=== PATIENT | male | born 1985 | race Caucasian/White ===

== ENCOUNTER 2022-05-27 16:06 | Emergency (ER) | payer MEDICAID, SELFPAY ==
--- NOTE | ~2022-05-27 | XR_ITS ---
EXAMINATION: XR chest 2V DATE: 05/27/2022 16:45 INDICATION: Weakness. Dizziness. TECHNIQUE: Frontal and lateral views of the chest were obtained. COMPARISON: Chest 2 views 12/20/2015 FINDINGS: The chest demonstrates clear lungs without pneumonia, pleural effusion, or pneumothorax. Th e heart size is normal. IMPRESSION: 1. No acute cardiopulmonary disease. Reviewed, dictated and finalized at location A.
--- NOTE | 2022-05-27 16:09 | ECG_ITS ---
Measurements Intervals [place] Rate: 78 P: 28 [place]: 180 QRS: 32 QRSD: 94 T: 18 QT: 341 QTc: 389 Interpretive Statements SINUS RHYTHM BASELINE ARTIFACT- I, II, III, AVR, AVL, AVF, V1-V2 NORMAL ECG Electronically Signed On 05-27-2022 18:52:49 CDT by Villa Burch D.O.
[2022-05-27 16:10] VITALS: BP 152/92; PULSE 99; RESP 17; TEMP 37.1; O2SAT 100
[2022-05-27 16:29] LABS: Basophils Percent Auto 0.4 % (0.2-1.2); Eosinophils Absolute Auto 0.2 K/mm3 (0-0.3); Eosinophils Percent Auto 2.6 % (0-4.4); Hematocrit 37.7 % (42.0-52.0); Hemoglobin 12.3 g/dL (14.0-18.0); Immature Granulocyte Absolute 0.02 K/mm3 (0.00-0.031); Immature Granulocyte Percent A 0.3 % (0-0.5); Lymphocytes Absolute Auto 3.55 K/mm3 (0.9-3.2); Lymphocytes Percent Auto 50.5 % (18.3-44.2); Mean Corpuscular HGB Conc 32.6 g/dl (32-36); Mean Corpuscular Hemoglobin 29.4 pg (26-34); Mean Corpuscular Volume 90.2 fl (80-100); Mean Platelet Volume 8.3 fl (7.4-10.4); Monocytes Absolute Auto 0.5 K/mm3 (0.1-0.6); Monocytes Percent Auto 6.4 % (2.6-8.5); Neutrophils Absolute Auto 2.8 K/mm3 (1.3-6.7); Neutrophils Percent Auto 39.8 % (45.5-73.1); Platelet Count Result 359 k/mm3 (150-375); Red Blood Count 4.18 M/mm3 (4.6-6.20); Red Cell Distribution Width 13.2 % (11.5-14.5)
[2022-05-27 16:38] LABS: Alanine Aminotransferase 23 U/L (6-50); Albumin Level 4.9 g/dL (3.5-5.1); Alkaline Phosphatase 60 U/L (38-126); Anion Gap 9 mmol/L (8-16); Aspartate Amino Transferase 34 U/L (17-59); Bilirubin,Total 0.5 mg/dL (0.2-1.3); Blood Urea Nitrogen 16 mg/dL (9-20); Carbon Dioxide 24 mmol/L (22-30); Chloride 102 mmol/L (98-107); Estimated CRCL calculation 150 ml/min; Estimated Glomerular Filt Rate > 60; Glucose 130 mg/dL (65-110); Potassium 3.7 mmol/L (3.4-5.0); Sodium 135 mmol/L (137-145)
[2022-05-27 16:38] LABS: Appearance Urine Clear (Clear); Bilirubin Urine Negative (Negative); Blood Urine Negative (Negative); Color Urine Yellow (Yellow); Glucose Urine UA Negative (Negative); Ketones Urine Negative (Negative); Leukocyte Esterase Ur Negative LEU/UL (Negative); Nitrate Urine Negative (Negative); Protein Urine Negative (Negative); Specific Grav Ur >= 1.030 (1.001-1.035); Urobilinogen Urine 0.2 mg/dL (<2.0); pH Urine 5.5 (5.0-9.0)
[2022-05-27 16:42] LABS: Add Urine Microscopic? NO
--- NOTE | 2022-05-27 17:44 | PC.NURSE ---
Pt called to be roomed. Pt not present in waiting room at this time.
--- NOTE | 2022-05-27 17:50 | PC.NURSE ---
Pt called again to be taken to room. Pt still not present in waiting room or outside of ED doors. Pt left without being seen.
== END 2022-05-27 17:50 | disposition left against medical advice (07) ==
LOC: ANHED 17:58
PROVIDERS: Emergency Provider Emergency Medicine
DX: R53.1 Weakness (principal)
CPT/HCPCS: 36415; 71046; 80053; 81003; 85025; 93005; 99199

== ENCOUNTER 2022-06-18 12:40 | Emergency (ER) | payer MEDICAID, SELFPAY ==
--- NOTE | ~2022-06-18 | XR_ITS ---
EXAMINATION: XR chest 2V DATE: 06/18/2022 13:04 INDICATION: Chest pressure. TECHNIQUE: Frontal and lateral views of the chest were obtained. COMPARISON: Chest 2 views 05/27/2022 FINDINGS: The chest demonstrates clear lungs without pneumonia, pleural effusion, or pneumothorax. Th e heart size is normal. IMPRESSION: 1. No acute cardiopulmonary disease. Reviewed, dictated and finalized at location A.
--- NOTE | 2022-06-18 12:43 | ECG_ITS ---
Measurements Intervals [place] Rate: 78 P: 18 DC: 176 QRS: 38 QRSD: 91 T: 29 QT: 341 QTc: 389 Interpretive Statements SINUS RHYTHM NORMAL EKG COMPARED TO ECG 05/27/2022 16:18:19 NO SIGNIFICANT CHANGES Electronically Signed On 06-18-2022 16:40:39 CDT by Emily Mclain M.D.
[2022-06-18 12:50] VITALS: BP 146/97; PULSE 103; RESP 18; TEMP 36.8; O2SAT 97
[2022-06-18 12:53] VITALS: PULSE 97
--- NOTE | 2022-06-18 12:53 | ED.CHESTPAIN ---
HPI - Chest Pain General Chief Complaint: Chest Pain Stated Complaint: chest pressure x 3 days Time Seen by Provider: 06/18/22 12:42 History of Present Illness HPI narrative: 36-year-old male with a history of polysubstance abuse and hypertension presents the emergency room for evaluation of chest pain for 3 days. Patient describes the pain as pressure sensation has been constant since onset. States the pain is worse with exertion. At times he has become diaphoretic. Denies any shortness of breath difficulty breathing near syncopal episodes. Patient admits to frequent fentanyl use, last use was this morning. Related Data Allergies Allergy/AdvReac Type Severity Reaction Status Date / Time adhesive tape Allergy Mild MEDICAL Verified 06/18/22 12:54 TAPE= HIVES AT THE SITE haloperidol Allergy Unknown HANDS CURL Verified 06/18/22 12:54 Review of Systems Review of Systems: CONSTITUTIONAL: Denies fever, chills, or sweats. EYES: Denies visual changes, redness, or discharge. ENT: Denies rhinorrhea, congestion, sore throat, or otalgia. CARDIOVASCULAR: Reports chest pain, denies palpitations or edema RESPIRATORY: Denies cough or dyspnea. GASTROINTESTINAL: Denies abdominal pain, nausea, vomiting, or diarrhea. GENITOURINARY: Denies dysuria or hematuria. SKIN: Denies rash or itching. MUSCULOSKELETAL: Denies back pain, joint pain, or myalgia. NEUROLOGIC: Denies headache, numbness, dizziness, or weakness. PSYCHIATRIC: Denies anxiety or depression. Exam Narrative: GENERAL: Well-appearing, well-nourished, no physical limitations, and in no acute distress. HEAD: Normocephalic, atraumatic. EYES: Conjunctivae normal, PERRLA and EOMI. CHEST: Clear to auscultation. No respiratory distress. No wheezes rales or rhonchi. No tenderness. HEART: Regular rate and rhythm. No murmur heard. Normal peripheral pulses. ABDOMEN: Soft, nontender, nondistended, normal active bowel sounds. EXTREMITIES: Normal range of motion. No edema. No clubbing or cyanosis SKIN: Warm, dry, no rash. No noted wounds NEURO: No focal deficits. Alert and oriented x3. MAEW. CN's II-XI intact bilaterally, normal gait PSYCH: Cooperative. Normal mood and affect. Anxious Course Vital Signs Vital signs: Vital Signs Temperature 36.8 C 06/18/22 12:50 Pulse Rate 103 H 06/18/22 12:50 Respiratory Rate 18 06/18/22 12:50 Blood Pressure 146/97 H 06/18/22 12:50 Pulse Oximetry 97 06/18/22 12:50 Oxygen Delivery Room Air 06/18/22 12:50 Temperature 36.8 C 06/18/22 12:50 Pulse Rate 68 06/18/22 13:41 Respiratory Rate 16 06/18/22 13:41 Blood Pressure 123/72 06/18/22 13:41 Pulse Oximetry 98 06/18/22 13:41 Oxygen Delivery Room Air 06/18/22 12:50 MDM - Chest Pain MDM Narrative Medical decision making narrative: 36-year-old history of polysubstance abuse presented with complaints of constant chest pain for the last 3 days. Exam showed no evidence of volume overload. EKG showed no signs of active ischemia. Initial troponin was negative. Chest x-ray shows no evidence of acute cardiopulmonary disease. Heart score was 0, so the plan is for the patient to follow-up with primary care physician. Strongly encourage patient to discontinue abuse of fentanyl. Lab Data Result diagrams: 06/18/22 13:28 06/18/22 13:28 Labs: Lab Results 06/18/22 06/18/22 06/18/22 Range/Units 13:28 13:28 13:28 WBC 6.3 (4.5-10.0) K/mm3 RBC 4.68 (4.6-6.20) M/mm3 Hgb 13.7 L (14.0-18.0) g/dL Hct 40.9 L (42.0-52.0) % MCV 87.4 (80-100) fl MCH 29.3 (26-34) pg MCHC 33.5 (32-36) g/dl RDW 12.7 (11.5-14.5) % Plt Count 345 (150-375) k/mm3 MPV 8.6 (7.4-10.4) fl Immature Gran % (Auto) 0.5 (0-0.5) % Neut % (Auto) 59.7 (45.5-73.1) % Lymph % (Auto) 31.8 (18.3-44.2) % [place] % (Auto) 5.1 (2.6-8.5) % Eos % (Auto) 2.4 (0-4.4) % Baso % (Auto) 0.5 (0.2-1.2) % Lymph #
[2022-06-18 13:38] LABS: Basophils Percent Auto 0.5 % (0.2-1.2); Eosinophils Absolute Auto 0.2 K/mm3 (0-0.3); Eosinophils Percent Auto 2.4 % (0-4.4); Hematocrit 40.9 % (42.0-52.0); Hemoglobin 13.7 g/dL (14.0-18.0); Immature Granulocyte Absolute 0.03 K/mm3 (0.00-0.031); Immature Granulocyte Percent A 0.5 % (0-0.5); Lymphocytes Absolute Auto 1.99 K/mm3 (0.9-3.2); Lymphocytes Percent Auto 31.8 % (18.3-44.2); Mean Corpuscular HGB Conc 33.5 g/dl (32-36); Mean Corpuscular Hemoglobin 29.3 pg (26-34); Mean Corpuscular Volume 87.4 fl (80-100); Mean Platelet Volume 8.6 fl (7.4-10.4); Monocytes Absolute Auto 0.3 K/mm3 (0.1-0.6); Monocytes Percent Auto 5.1 % (2.6-8.5); Neutrophils Absolute Auto 3.7 K/mm3 (1.3-6.7); Neutrophils Percent Auto 59.7 % (45.5-73.1); Platelet Count Result 345 k/mm3 (150-375); Red Blood Count 4.68 M/mm3 (4.6-6.20); Red Cell Distribution Width 12.7 % (11.5-14.5); White Blood Count 6.3 K/mm3 (4.5-10.0)
[2022-06-18 13:41] VITALS: BP 123/72; PULSE 68; RESP 16; O2SAT 98
[2022-06-18 13:47] LABS: Alanine Aminotransferase 32 U/L (6-50); Albumin Level 4.6 g/dL (3.5-5.1); Alkaline Phosphatase 63 U/L (38-126); Anion Gap 11 mmol/L (8-16); Appearance Urine Clear (Clear); Aspartate Amino Transferase 34 U/L (17-59); Bilirubin Urine Negative (Negative); Bilirubin,Total 0.3 mg/dL (0.2-1.3); Blood Urea Nitrogen 14 mg/dL (9-20); Blood Urine Negative (Negative); Calcium 9.7 mg/dL (8.4-10.2); Carbon Dioxide 26 mmol/L (22-30); Chloride 98 mmol/L (98-107); Color Urine Yellow (Yellow); Estimated CRCL calculation 133 ml/min; Estimated Glomerular Filt Rate > 60; Glucose 109 mg/dL (65-110); Glucose Urine UA Negative (Negative); Ketones Urine Negative (Negative); Leukocyte Esterase Ur Negative LEU/UL (Negative); Lipase 24 U/L (23-300); Nitrate Urine Negative (Negative); Protein Urine Negative (Negative); Sodium 135 mmol/L (137-145); Specific Grav Ur 1.015 (1.001-1.035); Urobilinogen Urine 0.2 mg/dL (<2.0)
[2022-06-18 13:52] LABS: D Dimer 0.35 ug/mL (<0.48)
[2022-06-18 13:54] LABS: Amphetamine Screen Urine Negative (Negative); Barbiturate Screen Urine Negative (Negative); Benzodiazepines Screen Urine Negative (Negative); Cannabinoid Screen Urine Negative (Negative); Cocaine Screen Urine Negative (Negative); Methadone Screen Urine Negative (Negative); Opiate Screen Urine Negative (Negative); Phencyclidine Screen Urine Negative (Negative)
[2022-06-18 13:59] LABS: Troponin I < 0.012 ng/mL (0.000-0.034)
[2022-06-18 14:03] LABS: Add Urine Microscopic? NO
[2022-06-18 14:23] VITALS: BP 104/71; PULSE 58; RESP 16; O2SAT 99
== END 2022-06-18 14:24 | disposition home or self-care (01) ==
PROVIDERS: Emergency Medicine; Emergency Provider Nurse Practitioner Family
DX: R07.89 Other chest pain (principal); F11.20 Opioid dependence, uncomplicated; F19.20 Other psychoactive substance dependence, uncomplicated
CPT/HCPCS: 36415; 71046; 80053; 80307; 81003; 83690; 84484; 85025; 85380; 93005; 99284

== ENCOUNTER 2022-06-25 11:15 | Emergency (ER) | payer MEDICAID, SELFPAY ==
--- NOTE | ~2022-06-25 | XR_ITS ---
EXAMINATION: XR chest 2V 06/25/2022 12:09 INDICATION: Chest palpitations PROCEDURE: 2 view chest COMPARISON: 06/18/2022 FINDINGS: The lungs are clear. The cardiomediastinal silhouette is within normal limits. There are no pleural effusions. There is no pneumothorax suspected. IMPRESSION: 1: NO ACUTE CARDIOPULMONARY DISEASE. Reviewed, dictated and finalized at location B.
--- NOTE | 2022-06-25 11:18 | ECG_ITS ---
Measurements Intervals [place] Rate: 103 P: 15 [place]: 140 QRS: 47 QRSD: 86 T: 21 QT: 325 QTc: 426 Interpretive Statements SINUS TACHYCARDIA OTHERWISE NORMAL ECG COMPARED TO ECG 06/18/2022 12:54:15 SINUS TACHYCARDIA NOW PRESENT Electronically Signed On 06-25-2022 12:11:25 CDT by Bernabe Beasley M.D.
[2022-06-25 11:29] VITALS: BP 138/87; PULSE 101; RESP 16; TEMP 36.7; O2SAT 100
[2022-06-25 11:49] LABS: Basophils Percent Auto 0.5 % (0.2-1.2); Eosinophils Absolute Auto 0.1 K/mm3 (0-0.3); Eosinophils Percent Auto 2.2 % (0-4.4); Hematocrit 40.4 % (42.0-52.0); Hemoglobin 13.4 g/dL (14.0-18.0); Immature Granulocyte Absolute 0.03 K/mm3 (0.00-0.031); Immature Granulocyte Percent A 0.5 % (0-0.5); Lymphocytes Absolute Auto 2.26 K/mm3 (0.9-3.2); Lymphocytes Percent Auto 39.1 % (18.3-44.2); Mean Corpuscular HGB Conc 33.2 g/dl (32-36); Mean Corpuscular Hemoglobin 29.3 pg (26-34); Mean Corpuscular Volume 88.2 fl (80-100); Mean Platelet Volume 8.7 fl (7.4-10.4); Monocytes Absolute Auto 0.4 K/mm3 (0.1-0.6); Monocytes Percent Auto 6.9 % (2.6-8.5); Neutrophils Absolute Auto 2.9 K/mm3 (1.3-6.7); Neutrophils Percent Auto 50.8 % (45.5-73.1); Platelet Count Result 351 k/mm3 (150-375); Red Blood Count 4.58 M/mm3 (4.6-6.20); White Blood Count 5.8 K/mm3 (4.5-10.0)
[2022-06-25 12:01] LABS: INR 0.9; Prothrombin Time 11.7 Seconds (11.1-14.7)
[2022-06-25 12:03] LABS: Alanine Aminotransferase 27 U/L (6-50); Albumin Level 4.9 g/dL (3.5-5.1); Alkaline Phosphatase 65 U/L (38-126); Anion Gap 12 mmol/L (8-16); Aspartate Amino Transferase 30 U/L (17-59); Bilirubin,Total 0.4 mg/dL (0.2-1.3); Blood Urea Nitrogen 14 mg/dL (9-20); Calcium 9.8 mg/dL (8.4-10.2); Carbon Dioxide 23 mmol/L (22-30); Chloride 101 mmol/L (98-107); Estimated CRCL calculation 150 ml/min; Estimated Glomerular Filt Rate > 60; Glucose 122 mg/dL (65-110); Lipase 50 U/L (23-300); Sodium 136 mmol/L (137-145)
[2022-06-25 12:15] LABS: Troponin I < 0.012 ng/mL (0.000-0.034)
[2022-06-25 12:23] VITALS: BP 120/87; PULSE 70; RESP 10; O2SAT 98
[2022-06-25 12:28] LABS: Magnesium 1.9 mg/dL (1.6-2.3)
[2022-06-25 12:52] LABS: Amphetamine Screen Urine Negative (Negative); Barbiturate Screen Urine Negative (Negative); Benzodiazepines Screen Urine Negative (Negative); Cannabinoid Screen Urine Negative (Negative); Cocaine Screen Urine Negative (Negative); Methadone Screen Urine Negative (Negative); Opiate Screen Urine Negative (Negative); Phencyclidine Screen Urine Negative (Negative)
--- NOTE | 2022-06-25 13:06 | ED.ARRPALP ---
HPI - Arrhythmia/Palpitations General Chief Complaint: Arrhythmia/Palpitations Stated Complaint: palpations Time Seen by Provider: 06/25/22 12:00 Source: patient and RN notes reviewed Mode of arrival: ambulatory Limitations: no limitations History of Present Illness HPI narrative: This is a 36 year old male who presents for evaluation of rapid heat rate after snorting fentanyl. Patient states he snorts fentanyl and he has been weaning himself off over past 1 month. He states he relapsed 2 months ago. He has only been snorting a small amount in order to prevent withdrawal and to stop using. Today he used his normal amount and he felt different. He reports his heart was racing and it caused him increased anxiety. He states this lasted 25 mintues. He denies chest pain or sob. He is not have nausea, vomiting or diarrhea. He also denies lightheadedness. He reports being admitted 4 months ago to [facility] for elevated blood pressure and possible heart attack. He has normal echo and stress test at that time. Related Data Home Medications Medication Instructions Recorded Confirmed aspirin 81 mg tablet mg PO 06/25/22 hydrochlorothiazide 12.5 mg capsule mg 06/25/22 lisinopril 40 mg tablet mg 06/25/22 Allergies Allergy/AdvReac Type Severity Reaction Status Date / Time adhesive tape Allergy Mild MEDICAL Verified 06/25/22 11:41 TAPE= HIVES AT THE SITE haloperidol Allergy Unknown HANDS CURL Verified 06/25/22 11:41 Review of Systems Review of Systems: All systems reviewed & are unremarkable except as noted in HPI and below Constitutional: Constitutional: Denies chills, Denies fatigue and Denies fever(s) Cardiovascular: Cardiovascular: Denies chest pain, Reports rapid heart rate and Denies radiating jaw, neck or arm pain Respiratory: Respiratory: Denies chest congestion Gastrointestinal: Gastrointestinal: Denies abdominal pain, Denies nausea and Denies vomiting Genitourinary: Genitourinary: Denies hematuria [facility] [place] Past Medical History Medical History (Updated 06/25/22 @ 13:19 by Lory Morejon MD) Hypertension Social History Social History (Updated 06/25/22 @ 13:12 by Lory Morejon MD) Smoking packs per day: 1.5 Smoking cigarettes per day: 30.0 Smoking status: Current every day smoker Alcohol intake: former Last use: fentanyl Exam Const: General: healthy appearing Nutritional Appearance: well nourished Orientation/consciousness: patient oriented x3 Limitations: no limitations Eyes: EOM: EOMs intact bilaterally Chest: Chest palpation & inspection: normal inspection of the chest Resp: Effort & Inspection: normal respiratory effort Auscultation: clear to auscultation bilaterally Cardio: Rate: regular rate Rhythm: regular rhythm Heart sounds: no murmurs GI: GI Palp: Yes Soft to palpation, No Tenderness to palpation present (GI), No Guarding due to palpation present (GI) and No Rigid due to palpation Auscultation: normal bowel sounds Skin: General skin exam: normal color Rashes: no rashes Wounds: no wounds Neuro: General: patient oriented x3, moves all extremities and CN's II-XI intact bilaterally Cranial nerves: Yes Nystagmus not present Speech: normal speech Extrem: General: normal to inspection Psych: Mental Status: mental status grossly normal Affect: normal affect Attitude: cooperative Course Reevaluation(s) Reevaluation #1: PAtient has been resting comfortably. He has not had palpitations in ER. I discussed test unremarkable other than EKG showing sinus tachycardia which has resolved. Date: 06/25/22 Time: 13:17 Vital Signs Vital signs: Vital Signs Temperature 98.0 F 06/25/22 11:29 Pulse Rate 101 H 06/25/22 11:29 Respiratory Rate 16 06/25/22 11:29 Blood Pressure 138/87 06/25/22 11:29 Pulse Oximetry 100 06/25/22 11:29 Oxygen Delivery Room Air 06/25/22 11:29 Temperature 98.0 F 06/25/22 11:29 Pulse Rate 67
[2022-06-25 13:28] VITALS: BP 100/61; PULSE 67; RESP 14; O2SAT 97
== END 2022-06-25 13:29 | disposition home or self-care (01) ==
PROVIDERS: Emergency Medicine; Emergency Provider General Practice
DX: R00.2 Palpitations (principal); F11.90 Opioid use, unspecified, uncomplicated; I10 Essential (primary) hypertension; F17.210 Nicotine dependence, cigarettes, uncomplicated
CPT/HCPCS: 36415; 71046; 80053; 80307; 83690; 83735; 84443; 84484; 85025; 85610; 85730; 93005; 99284

== ENCOUNTER 2022-07-11 20:41 | Emergency (ER) | payer MEDICAID, SELFPAY ==
--- NOTE | ~2022-07-11 | XR_ITS ---
EXAMINATION: XR chest 2V DATE: 07/11/2022 21:15 INDICATION: Chest pain. TECHNIQUE: PA and lateral views of the chest were obtained. COMPARISON: Chest radiograph dated 06/25/2022 FINDINGS: The lungs remain clear with no focal airspace opacities, pulmonary edema, pleural effusion or pneumot horax. The cardiomediastinal silhouette is normal. Mild thoracic levocurvature. IMPRESSION: 1. No acute cardiopulmonary disease. Reviewed, dictated and finalized at location A.
--- NOTE | 2022-07-11 20:56 | ECG_ITS ---
Measurements Intervals [place] Rate: 106 P: 10 [place]: 154 QRS: 53 QRSD: 89 T: 39 QT: 306 QTc: 407 Interpretive Statements SINUS TACHYCARDIA BASELINE ARTIFACT- III, AVR, AVL, AVF, V4-V6 BORDERLINE ECG COMPARED TO ECG 06/25/2022 11:22:40 NO SIGNIFICANT CHANGE Electronically Signed On 07-12-2022 6:49:27 CDT by Villa Burch D.O.
[2022-07-11 21:00] VITALS: BP 148/103; PULSE 114; RESP 20; TEMP 37; O2SAT 98
[2022-07-11 21:12] LABS: Basophils Percent Auto 0.4 % (0.2-1.2); Eosinophils Percent Auto 0.2 % (0-4.4); Hematocrit 41.2 % (42.0-52.0); Hemoglobin 13.9 g/dL (14.0-18.0); Immature Granulocyte Absolute 0.03 K/mm3 (0.00-0.031); Immature Granulocyte Percent A 0.3 % (0-0.5); Lymphocytes Absolute Auto 3.23 K/mm3 (0.9-3.2); Lymphocytes Percent Auto 28.6 % (18.3-44.2); Mean Corpuscular HGB Conc 33.7 g/dl (32-36); Mean Corpuscular Hemoglobin 29.2 pg (26-34); Mean Corpuscular Volume 86.6 fl (80-100); Mean Platelet Volume 8.7 fl (7.4-10.4); Monocytes Absolute Auto 0.8 K/mm3 (0.1-0.6); Monocytes Percent Auto 7.3 % (2.6-8.5); Neutrophils Absolute Auto 7.2 K/mm3 (1.3-6.7); Neutrophils Percent Auto 63.2 % (45.5-73.1); Platelet Count Result 390 k/mm3 (150-375); Red Blood Count 4.76 M/mm3 (4.6-6.20); Red Cell Distribution Width 12.8 % (11.5-14.5); White Blood Count 11.3 K/mm3 (4.5-10.0)
[2022-07-11 21:23] LABS: Prothrombin Time 13.2 Seconds (11.1-14.7)
[2022-07-11 21:24] LABS: Partial Thromboplastin Time 24.4 SECONDS (22.3-36.8)
[2022-07-11 21:29] LABS: Alanine Aminotransferase 32 U/L (6-50); Albumin Level 5.5 g/dL (3.5-5.1); Alkaline Phosphatase 69 U/L (38-126); Aspartate Amino Transferase 39 U/L (17-59); Bilirubin,Total 1.1 mg/dL (0.2-1.3); Blood Urea Nitrogen 21 mg/dL (9-20); Calcium 10.3 mg/dL (8.4-10.2); Carbon Dioxide 21 mmol/L (22-30); Chloride 102 mmol/L (98-107); Estimated CRCL calculation 99 ml/min; Estimated Glomerular Filt Rate > 60; Glucose 111 mg/dL (65-110); Lipase 45 U/L (23-300); Potassium 3.7 mmol/L (3.4-5.0)
[2022-07-11 21:34] LABS: Troponin I < 0.012 ng/mL (0.000-0.034)
[2022-07-11 21:48] LABS: Anion Gap 9 mmol/L (8-16); Sodium 132 mmol/L (137-145)
== END 2022-07-11 23:15 | disposition left against medical advice (07) ==
LOC: ANHED 07-12 00:54
PROVIDERS: Emergency Provider Emergency Medicine
DX: R07.89 Other chest pain (principal)
CPT/HCPCS: 36415; 71046; 80053; 83690; 84484; 85025; 85610; 85730; 93005; 99199

== ENCOUNTER 2022-07-12 03:55 | Emergency (ER) | payer MEDICAID, SELFPAY ==
[2022-07-12 04:02] VITALS: BP 133/86; PULSE 98; RESP 20; TEMP 36.6; O2SAT 98
--- NOTE | 2022-07-12 05:23 | ED.GENADULT ---
HPI - General Adult General Chief complaint: Unspecified Stated complaint: SOB/ Time Seen by Provider: 07/12/22 04:55 History of Present Illness HPI narrative: Patient is a 36-year-old gentleman who presents to the emergency department with chief complaint of I think they are trying to kill me. The patient reports that he has history of methamphetamine use and states that he believes that he has a any placed on him and that people are trying to give him bad meth. The patient states that he is collected several samples of methamphetamine that are not actually meth and reports that today he went to an individual and they gave him a test of the dose of the methamphetamine and the patient states that after he took it he has felt very strange and has been very twitchy and is concerned that they may be trying to kill him and not give him actual mass the patient denies suicidal or homicidal ideation. The patient states that he should not feel this way because meth usually does not do he can take a lot more meth than just a small amount and it not effective in this way. The patient states that he has a sample of the meth left that he can send to an independent lab to try to determine what actually is and it Related Data Home Medications Medication Instructions Recorded Confirmed aspirin 81 mg tablet mg PO 06/25/22 hydrochlorothiazide 12.5 mg capsule mg 06/25/22 lisinopril 40 mg tablet mg 06/25/22 Allergies Allergy/AdvReac Type Severity Reaction Status Date / Time adhesive tape Allergy Mild MEDICAL Verified 07/12/22 04:06 TAPE= HIVES AT THE SITE haloperidol Allergy Unknown HANDS CURL Verified 07/12/22 04:06 Review of Systems Review of Systems: A 10 system review of systems was completed on the patient and is negative except for what is stated in the HPI. Nursing and ancillary documentation was reviewed. PMFSH Past Medical History Medical History Hypertension Social History Social History Smoking packs per day: 1.5 Smoking cigarettes per day: 30.0 Smoking status: Current every day smoker Alcohol intake: former Last use: fentanyl Exam Narrative: GENERAL: Well-appearing, well-nourished, and in no acute distress. Patient appears to be having twitching like motions of his body as though he is showing signs of sympathomimetic toxidrome HEAD: Normocephalic, atraumatic. EYES: PERRLA and EOMI. ENT: Nares clear, no rhinorrhea or epistaxis. Mucous membranes moist. NECK: Supple. CHEST: Clear to auscultation. No respiratory distress. HEART: Regular rate and rhythm. No murmur heard. Normal peripheral pulses. ABDOMEN: Soft, nontender, nondistended, normal active bowel sounds. EXTREMITIES: Normal range of motion. No edema. SKIN: Warm, dry, no rash. NEURO: No focal deficits. Alert and oriented x3. PSYCH: Normal mood and affect. Course Course Emergency Course: Patient is extremely anxious is not suicidal or homicidal at this time. Patient is currently not a danger to himself or others. Patient will be given IV fluids and also be given a dose of Ativan to help him relax the patient will be observed in the emergency department Vital Signs Vital signs: Vital Signs Temperature 36.6 C 07/12/22 04:02 Pulse Rate 98 07/12/22 04:02 Respiratory Rate 20 07/12/22 04:02 Blood Pressure 133/86 07/12/22 04:02 Pulse Oximetry 98 07/12/22 04:02 Oxygen Delivery Room Air 07/12/22 04:02 Temperature 36.6 C 07/12/22 04:02 Pulse Rate 100 07/12/22 06:06 Respiratory Rate 17 07/12/22 06:06 Blood Pressure 133/86 07/12/22 04:02 Pulse Oximetry 98 07/12/22 04:02 Oxygen Delivery Room Air 07/12/22 04:02 Medical Decision Making Vital Signs Vital Signs: Vital Signs Temperature 36.6 C 07/12/22 04:02 Pulse Rate 98 07/12/22 04:02 Respiratory Rate
[2022-07-12 05:25] VITALS: PULSE 94
[2022-07-12] MEDS: SODIUM CHLORIDE 0.9% IV 1,000 ML 999 ML IV CONT (05:27)
[2022-07-12] MEDS: LORazepam INJ (*CRX) 2 MG/ML VIAL 1 MG IV PUSH (05:27)
[2022-07-12] MEDS: ONDANSETRON INJ 4 MG/2 ML VIAL IV PUSH (05:51)
[2022-07-12 05:57] VITALS: PULSE 105; RESP 13
[2022-07-12] MEDS: IPRATROPIUM BR 0.02% INH SOLN 0.5 MG/2.5 ML VIAL INHALATION (05:57)
[2022-07-12] MEDS: ALBUTEROL SULFATE NEB 2.5 MG/3 ML INH 5 MG INHALATION (05:57)
[2022-07-12 06:00] VITALS: BP 149/80; PULSE 99; RESP 22; O2SAT 98
--- NOTE | 2022-07-12 06:02 | PCRCNOTE ---
pt stated to RT that he is fearful for his life and his children's life. pt stated that he had his last 'hit' of meth 4 days ago and has not felt normal since. RN and MD notified.
[2022-07-12 06:06] VITALS: PULSE 100; RESP 17
== END 2022-07-12 06:40 | disposition home or self-care (01) ==
PROVIDERS: Emergency Provider Emergency Medicine
DX: T44.991A Poisoning by other drug primarily affecting the autonomic nervous system, accidental (unintentional), initial encounter (principal); F17.210 Nicotine dependence, cigarettes, uncomplicated; I10 Essential (primary) hypertension
CPT/HCPCS: 94640; 96361; 96374; 96375; 99284; J2060; J2405; J7030

== ENCOUNTER 2022-08-01 09:23 | Emergency (ER) | payer MEDICAID, SELFPAY ==
[2022-08-01 09:39] VITALS: BP 133/73; PULSE 97; RESP 16; TEMP 36.6; O2SAT 100
--- NOTE | 2022-08-01 09:48 | PC.NURSE ---
Pt to desk reporting that he wants to leave without being seen. Pt A&Ox4 and in no obvious distress. Pt ambulatory w/ steady gait. Pt encouraged to return if his symptoms do not improve.
== END 2022-08-01 09:55 | disposition left against medical advice (07) ==
LOC: ANHED 09:54
DX: R10.11 Right upper quadrant pain (principal)
CPT/HCPCS: 99199

== ENCOUNTER 2022-09-30 14:03 | Emergency (ER) | payer MEDICAID, SELFPAY ==
--- NOTE | ~2022-09-30 | XR_ITS ---
EXAMINATION: XR chest 2V 09/30/2022 14:28 INDICATION: Cough and congestion. Covid positive. PROCEDURE: 2 view chest COMPARISON: Comparison to multiple prior studies sequentially, with oldest reviewed study dated 05/27. FINDINGS: The lungs are clear. The cardiomediastinal silhouette is within normal limits. There are no pleural effusions. There is no pneumothorax suspected. IMPRESSION: 1: NO ACUTE CARDIOPULMONARY DISEASE. Reviewed, dictated and finalized at location B. [employer]
[2022-09-30 14:04] VITALS: BP 126/72; PULSE 86; RESP 18; TEMP 37.2; O2SAT 98
[2022-09-30 15:31] LABS: Influenza A QL RT-PCR Positive (Negative); Influenza B QL RT-PCR Negative (Negative); RSV RNA, RT-PCR Negative (Negative); SARS-CoV-2 RNA PCR Negative
[2022-09-30 17:07] VITALS: O2SAT 98
--- NOTE | 2022-09-30 17:19 | ED.URI ---
HPI - URI/Sore Throat General Chief Complaint: Upper Respiratory Infection Stated Complaint: covid exposure/ cough Time Seen by Provider: 09/30/22 16:10 History of Present Illness HPI Narrative: Patient is a 36-year-old male here for evaluation of cough, congestion, sore throat and body aches over the past 3 days. Patient states that his family tested positive for COVID and he comes in requesting a test. He denies any fevers, chest pain or shortness of breath. He has not attempted any medicine for symptoms. Related Data Home Medications Medication Instructions Recorded Confirmed aspirin 81 mg tablet mg PO 06/25/22 hydrochlorothiazide 12.5 mg capsule mg 06/25/22 lisinopril 40 mg tablet mg 06/25/22 Allergies Allergy/AdvReac Type Severity Reaction Status Date / Time adhesive tape Allergy Mild MEDICAL Verified 08/01/22 09:43 TAPE= HIVES AT THE SITE haloperidol Allergy Unknown HANDS CURL Verified 08/01/22 09:43 Review of Systems Review of Systems: Gen.: Denies fevers or chills Eyes: Denies eye pain or visual change ENT: Reports congestion Respiratory: Reports cough. Denies shortness of breath CV: Denies chest pain or palpitations GI: Denies abdominal pain nausea, emesis or diarrhea denies burning, urgency, frequency or hematuria Musculoskeletal: Denies back pain or muscle pain Neuro: Denies numbness, tingling, weakness or focal weakness Skin: Denies rash Except as documented, all other systems reviewed and negative PMFSH Past Medical History Medical History Hypertension Social History Social History Smoking packs per day: 1.5 Smoking cigarettes per day: 30.0 Smoking status: Current every day smoker Alcohol intake: former Last use: fentanyl Exam Narrative: APPEARANCE: Well appearing, no pain in distress, well-nourished. Head: Normocephalic and atraumatic. EYES: PERRLA/EOMI, conjunctivae clear NOSE: No nasal drainage EARS: External ear normal in appearance THROAT: Oropharynx is clear. Mucous membranes are moist. NECK: Supple. No adenopathy, no masses. RESPIRATORY: Airway patent, respirations nonlabored. Clear to auscultation bilaterally, no rales, rhonchi, wheezing. CARDIOVASCULAR: Regular rate and rhythm without murmurs, rubs, or gallops. ABDOMINAL: Normoactive bowel sounds. Soft, nontender, nondistended. No rebound tenderness or guarding. MUSCULOSKELETAL: Extremities are warm and well-perfused. Moves all extremities well. No edema. NEURO: Normal speech. No focal neurologic deficits. SKIN: Skin is warm and dry. No rashes. PSYCHIATRIC: Normal affect/mood.. Course Vital Signs Vital signs: Vital Signs Temperature 99.0 F 09/30/22 14:04 Pulse Rate 86 09/30/22 14:04 Respiratory Rate 18 09/30/22 14:04 Blood Pressure 126/72 09/30/22 14:04 Pulse Oximetry 98 09/30/22 14:04 Oxygen Delivery Room Air 09/30/22 14:04 Temperature 99.0 F 09/30/22 14:04 Pulse Rate 86 09/30/22 14:04 Respiratory Rate 18 09/30/22 14:04 Blood Pressure 126/72 09/30/22 14:04 Pulse Oximetry 98 09/30/22 17:07 Oxygen Delivery Room Air 09/30/22 17:07 MDM - URI/Sore Throat MDM Narrative Medical decision making narrative: 36-year-old male here for evaluation of upper respiratory infectious type symptoms over the past several days. He is nontoxic-appearing and has normal vital signs, his heart and lungs are clear to auscultation throughout. His flu test is positive which likely explains his symptoms. He is outside of the window for antiviral therapy. No immunosuppression, hypoxia, indication for admission. He will be discharged to follow-up with his primary care provider and discussed return precautions. He is requesting a prescription for Mucinex which I sent to the pharmacy. Lab Data Labs: Lab Results 09/30/22 Range/Units 14:45
== END 2022-09-30 18:04 | disposition home or self-care (01) ==
LOC: ANHED 17:34
PROVIDERS: Emergency Medicine; Emergency Provider Emergency Medicine
DX: J10.1 Influenza due to other identified influenza virus with other respiratory manifestations (principal); I10 Essential (primary) hypertension; Z79.82 Long term (current) use of aspirin; F17.210 Nicotine dependence, cigarettes, uncomplicated
CPT/HCPCS: 71046; 87637; 99283

== ENCOUNTER 2023-08-17 21:00 | Emergency (ER) | payer MEDICAID, SELFPAY ==
[2023-08-17 21:17] VITALS: BP 158/108; PULSE 93; RESP 20; TEMP 37.6; O2SAT 100
--- NOTE | 2023-08-17 21:39 | PC.NURSE ---
Patient comes to desk with steady gait to inform this nurse I'm just going to go home. I gotta figure things out. Patient informed of risks of leaving before being seen by a provider and risks of leaving. Patient continued to state I am just going home, I'll come back if I need to. Patient ambulated out of the ED with a steady gait with belongings in hand.
== END 2023-08-17 21:44 | disposition left against medical advice (07) ==
LOC: ANHED 21:42
DX: R69 Illness, unspecified (principal)
CPT/HCPCS: 99199